=== PATIENT | female | born 1980 | race Two or more races ===

== ENCOUNTER 2021-05-06 08:21 | Outpatient (CLI) | payer OTHER | END 2021-05-06 08:29 | disposition home or self-care (01) | LOC: LAB 08:21 | PROVIDERS: ATTEND General Practice | DX: E03.8 Other specified hypothyroidism (principal); E11.9 Type 2 diabetes mellitus without complications; E55.9 Vitamin D deficiency, unspecified; N39.0 Urinary tract infection, site not specified; I10 Essential (primary) hypertension; D64.89 Other specified anemias; B34.8 Other viral infections of unspecified site; J06.9 Acute upper respiratory infection, unspecified ==

== ENCOUNTER → 2023-11-22 08:54 | Outpatient (CLI) | payer OTHER ==
[2023-11-22 10:10] LABS: HEMATOCRIT 37.6 % (36.0-45.00); HEMOGLOBIN 12.8 g/dL (12.0-15.00); MEAN CORPUSCULAR HEMOGLOBIN 27.5 pg (27.00-32.0); MEAN CORPUSCULAR HGB CONC 33.9 g/dl (32.0-36.0); PLATELET COUNT 207 K/uL (150-450); RED BLOOD COUNT 4.64 M/uL (4.00-6.00); RED CELL DISTRIBUTION WIDTH 14.3 % (11.5-14.5)
[2023-11-22 11:05] LABS: C-REACTIVE PROTEIN 0.29 MG/DL (0.00-0.29)
[2023-11-23 09:11] LABS: FOLLICLE STIMULATING HORMONE 9.1 mIU/mL (.)
== END | disposition home or self-care (01) ==
LOC: LAB 08:54
DX: M33.13 Other dermatomyositis without myopathy (principal); J82.89 Other pulmonary eosinophilia, not elsewhere classified

== ENCOUNTER → 2024-01-17 09:42 | Outpatient (CLI) | payer OTHER ==
[2024-01-18 09:07] LABS: ANTI THYROID PEROXIDASE 330 IU/mL (0-34); COMPLEMENT C4 33 mg/dL (12-38)
[2024-01-21 13:05] LABS: IMMUNOGLOBIN IGE 135 IU/mL (6-495)
== END | disposition home or self-care (01) ==
LOC: LAB 09:42
DX: L50.0 Allergic urticaria (principal)

== ENCOUNTER 2025-03-07 07:55 | Outpatient (CLI) | payer OTHER ==
[2025-03-07 08:30] LABS: BASO % 0.2 % (0.1-1.2); EOS # 0.14 (0.04-0.54); EOS % 2.8 % (0.7-7.0); LYMPH # 1.59 (1.18-3.74); LYMPH % 31.7 % (19.3-53.1); MEAN PLATELET VOLUME 9.10 fl (9.4-12.4); MONO # 0.24 (0.24-0.82); MONO % 4.8 % (4.7-12.5); NEUT # 3.02 (1.56-6.13); NEUT % 60.3 % (34.0-71.1); RED CELL DISTRIBUTION WIDTH 12.4 % (11.6-14.4)
[2025-03-07 09:24] LABS: ALT/SGPT 23.0 U/L (12-78); AST/SGOT 11.0 U/L (15-37); BILIRUBIN TOTAL 0.27 mg/dL (0.3-1.2); BUN CREA RATIO 25.0 (7.0-25.0); CHOL HDL RATIO 7.0 (0-5.0); CREATININE SERUM 0.75 mg/dL (0.55-1.02); GFR 82.83; GLOBULINA 3.7 G/DL (2.4-3.5); GLUCOSE FASTING 102.0 mg/dL (65-100); HDL 32.0 mg/dl (40-60); LDL 162.0 mg/dl (0-130); OSMOLALITY SERUM 284.0 MOSM/KG (275-295); T4 FREE 1.2 NG/ML (0.76-1.46); TSH 2.41 uIU/mL (0.358-3.74); VLDL 31.0 (0-39)
[2025-03-07 12:15] LABS: VITAMIN D3 25 HYDROXY 29.43 ng/ml (30-120)
== END 2025-03-07 08:00 | disposition home or self-care (01) ==
LOC: LAB 07:55
DX: E78.2 Mixed hyperlipidemia (principal); E11.65 Type 2 diabetes mellitus with hyperglycemia; I10 Essential (primary) hypertension; M81.8 Other osteoporosis without current pathological fracture; E03.8 Other specified hypothyroidism; C73 Malignant neoplasm of thyroid gland; D50.8 Other iron deficiency anemias; E53.8 Deficiency of other specified B group vitamins